=== PATIENT | male | born 1945 | race Caucasian/White ===

== ENCOUNTER 2020-04-25 09:22 | Day surgery (SDC) | payer MEDICARE ==
[~2020-04-25 09:22] MED LIST: Lactated Ringers 0 ML IV ONE; Lactated Ringers 1,000 ML IV ONE; Sensorcaine 0.25% 10 ML ONE
[2020-04-25] MEDS ORDERED: Lactated Ringers 1,000 ML IV SCH (10:30)
[2020-04-25] MEDS ORDERED: SUBLIMAZE 100 MCG/2 ML ONE (11:10)
[2020-04-25] MEDS ORDERED: Zemuron 100 MG/10 ML ONE (11:10)
[2020-04-25] MEDS ORDERED: BRIDION 200MG/2ML IV ONE (11:10)
[2020-04-25] MEDS ORDERED: Zofran 4 MG/2 ML VIAL ONE (11:10)
[2020-04-25] MEDS ORDERED: DIPRIVAN 200 MG/20 ML IV ONE (11:10)
[2020-04-25] MEDS ORDERED: Xylocaine-Mpf 2% 5 Ml Vial ONE (11:10)
[2020-04-25] MEDS ORDERED: TORAdol 30 mg Injection ONE (11:10)
[2020-04-25] MEDS ORDERED: Decadron 4 MG INJ ONE (11:10)
[2020-04-25] MEDS ORDERED: Ephedrine Sulfate 50 MG/ML ONE (12:38)
[2020-04-25] MEDS ORDERED: Ketamine HCl 50 MG/ML ONE (13:11)
[2020-04-25 13:35] VITALS: O2SAT 93
--- NOTE | 2020-04-25 13:46 | OP ---
SURGERY DATE/TIME: 04/25/2020 1149 PREOPERATIVE DIAGNOSES: 1) Right flank soft tissue mass. 2) Skin lesions of the right flank, right upper back and left arm. POSTOPERATIVE DIAGNOSES: 1) Excision of right flank soft tissue mass measuring 1 x 4 cm in the subcutaneous space. 2) Excision of right upper back skin lesion 1 x 1.5 cm ellipse. 3) Right flank skin lesion 1.5 cm ellipse. 4) Left arm skin lesion 2 cm ellipse. PROCEDURES: 1) Excision right flank skin lesion. 2) Excision right upper back skin lesion. 3) Excision right flank soft tissue mass. 4) Excision left arm skin lesion. SURGEON: Leonel Dubois M.D. ANESTHESIA: General. ESTIMATED BLOOD LOSS: 10. SPECIMENS: 1) Right flank skin lesion. 2) Right upper back skin lesion. 3) Right flank soft tissue mass. 4) Left arm skin lesion. PATIENT CONDITION: Stable. COMPLICATIONS: None. HISTORY: The patient is a 75 year-old male mainly complaining of pain at a right flank soft tissue mass which is very bothersome. He cannot lay on his side. He also has multiple skin lesions which have been irritated though none particularly concerning for cancer. Risk of infection, bleeding complications were discussed with the patient and he elected to proceed. FINDINGS: As above. DESCRIPTION OF PROCEDURE: The patient was brought to operating room. General anesthesia was induced. He was placed left side down with appropriate padding. SCD's were applied. Time out was performed. During the time out all of the lesions were identified with circles and initials which had been placed preoperatively while the patient was awake. He was routinely prepped and draped. The right upper back skin lesion was pigmented and a 1.5 cm ellipse was made. The specimen was sent to pathology. Skin was closed with Vicryl suture. Right flank skin lesion was excised as a 1.5 cm ellipse. This skin lesion was vascular in appearance. It was closed with Vicryl suture. The right flank soft tissue mass was palpable. Incision was placed over the lesion about 3 cm incision. The mass was fatty, well encapsulated, lipomatous appearing mass. It was excised. A deep dermal 3-0 Vicryl suture and 4-0 Vicryl suture were used to close. Steri-Strips and sterile dressings were applied to all of the wounds. The patient was then turned supine. The left arm was prepped and draped in routine fashion. There was a 1 cm vascular appearing lesion in the left upper arm. A 2 cm ellipse was made and then closed with 4-0 Vicryl suture. Steri-Strips and sterile dressings were applied. All counts were correct. All of the specimens were verified and sent to pathology. The patient tolerated the procedure well. Extubated and taken to recovery in stable condition.
[2020-04-25 13:48] VITALS: BP 144/78; PULSE 73
== END 2020-04-25 13:52 | disposition home or self-care (01) ==
LOC: SDC 09:22
PROVIDERS: ATTEND Surgery
DX: D17.1 Benign lipomatous neoplasm of skin and subcutaneous tissue of trunk (principal); D18.01 Hemangioma of skin and subcutaneous tissue; L82.1 Other seborrheic keratosis
CPT/HCPCS: 88304; 99100; J1100; J1885; J2405; J2704; J3010